=== PATIENT | female | born 1950 | race Caucasian/White ===

== ENCOUNTER 2023-01-03 19:54 | Inpatient (IN) | payer MEDICARE, OTHER ==
[~2023-01-03] VITALS: Ht 165.1 cm; Wt 75.7 kg
[2023-01-03 20:25] VITALS: BP 110/63; TEMP 98; O2SAT 96
[2023-01-03 20:30] VITALS: BP 110/63; TEMP 98; O2SAT 92
--- NOTE | 2023-01-03 20:30 | NUR ---
ADMITTED TO 5250 HOLD PER GD,DTO.*
--- NOTE | 2023-01-03 20:30 | NUR ---
RN NOTES :- ADMISSION NOTES: ADMITTED THIS 72Y/O FEMALE PATIENT ADMITTED FROM [facility]. ADMITTED TO 5150 HOLD PER HOLD GD ,DTO , DUE TO INCREASED AGITATION ,AND SUCIDAL BEHAVIOR . UPON FACE TO FACE ASSESSMENT PATIENT IS A&OX2 DEPRESSION,ANXIOUS ,CONFUSED ,COOPERTIVE/UNCOOPERTIVE AT THIS TIME ,POOR DECISION MAKING, NEEDS FREQUENTLY REDIRECTIONS,DENIES SI /HI AT THIS TIME, PT. IS POOR HISTORIAN, POOR INSIGHT ,POOR JUDGEMENT , BOTH MD AWARE AND NOTIFIED OF THE ADMISSION, NOTIFIED TO THE FAMILY. BELONGINGS CONTRABAND WERE DONE ,PT. REFUSED SIGNS ADMISSION CONSENT PAPER DUE TO CONFUSED , PT. RIGHTS DISCUSS BY NERVE SPECIALIST , PROVIDE THE PT. WITH HANDBOOK, AND MEDICATIONS GUIDE, ENVIRONMENTAL SAFETY CHECK DONE, ENCOURAGED PT. VERBALIZED ANY FEELING CONCERN TO STAFF, ORIENT TO UNIT POLICY, NO ACUTE DISTRESS NOTED,VITAL SIGNS WNL ,DENIES ANY PAIN AT THIS TIME,WILL CONTINUE TO MONITOR FOR Q15 SAFETY AND BEHAVIOR.
[2023-01-03] MEDS ORDERED: MAG HYDROX/AL HYDROX/SIMETH 30 ML UDC PO PRN (21:00)
[2023-01-03] MEDS ORDERED: MAGNESIUM HYDROXIDE 30 ML UDC PO PRN (21:00)
[2023-01-03] MEDS ORDERED: clonazePAM 0.5 MG TABLET PO PRN (21:00)
[2023-01-03] MEDS ORDERED: BLOOD SUGAR DIAGNOSTIC 1 EACH STRIP IN ONE (21:00)
[2023-01-03] MEDS ORDERED: TEMAZEPAM 7.5 MG CAPSULE PO PRN (21:00)
[2023-01-03] MEDS ORDERED: ESCI10TA PO (22:58)
[2023-01-03] MEDS ORDERED: LISINOPRIL (22:58)
[2023-01-03] MEDS ORDERED: ATOR20TA PO (22:58)
[2023-01-03] MEDS ORDERED: ALEN70TA80 PO (22:58)
[2023-01-03] MEDS ORDERED: OMEP20CA15 PO (22:58)
[2023-01-03] MEDS ORDERED: TRAZ-257 PO (22:58)
[2023-01-03] MEDS ORDERED: GABA-532 PO (22:58)
[2023-01-03] MEDS ORDERED: MIRABEGRON PO (22:58)
[2023-01-03] MEDS ORDERED: PIOG15TA8 PO (22:58)
[2023-01-03] MEDS ORDERED: GLIP5TAB13 PO (22:58)
[2023-01-03] MEDS ORDERED: ARIP2TAB3 PO (22:58)
[2023-01-04] MEDS ORDERED: DEXTROSE 50%-WATER 50 ML DISP.SYRIN IV PRN (00:30)
[2023-01-04] MEDS ORDERED: ALENDRONATE 70 MG TABLET PO SCH (06:00)
[2023-01-04 07:50] LABS: BASOPHILS # (AUTO) 0.1 K/uL (0.0-0.2); BASOPHILS % (AUTO) 0.7 % (0.0-2.0); EOSINOPHILS % (AUTO) 2.9 % (0.0-6.0); HEMATOCRIT 35 % (33-45); HEMOGLOBIN 11.4 g/dL (11.5-14.8); LYMPHOCYTES # (AUTO) 2.5 K/uL (0.8-4.8); MEAN CORPUSCULAR HGB CONC 33 g/dl (31.0-36.0); MEAN CORPUSCULAR VOLUME 94 fL (82-100); MONOCYTES # (AUTO) 0.4 K/uL (0.1-1.30); MONOCYTES % (AUTO) 5.6 % (2.0-12.0); NEUTROPHILS % (AUTO) 55.8 % (43.0-81.0); PLATELET COUNT (AUTO) 257 K/uL (150-450); RED BLOOD CELL COUNT(AUTO) 3.68 MIL/uL (4.0-5.2); WHITE BLOOD COUNT (AUTO) 7.2 K/uL (4.3-11.0)
[2023-01-04] MEDS: BLOOD SUGAR DIAGNOSTIC 1 EACH STRIP IN SCH ×4 (07:59→21:21)
[2023-01-04 08:00] VITALS: BP 112/74; TEMP 98.7; O2SAT 96
[2023-01-04] MEDS: INSULIN REGULAR, HUMAN 100 UNIT/ML 3 ML VIAL SQ PRN ×2 (08:03→21:28)
[2023-01-04 08:26] LABS: ALANINE AMINOTRANSFERASE 30 U/L (12-78); ALBUMIN 3.6 g/dL (3.4-5.0); ALKALINE PHOSPHATASE 94 U/L (46-116); ASPARTATE AMINOTRANSFERASE 34 U/L (15-37); BILIRUBIN,TOTAL 0.6 mg/dL (0.2-1.0); CALCIUM, SERUM 9.8 mg/dL (8.5-10.1); CARBON DIOXIDE 26 mmol/L (21-32); CHLORIDE 106 mmol/L (98-107); CREATININE 1.2 mg/dL (0.6-1.3); GLUCOSE 139 mg/dL (74-106); POTASSIUM 4.1 mmol/L (3.5-5.1); SODIUM SERUM 142 mmol/L (136-145); TOTAL PROTEIN, SERUM 7.8 g/dL (6.4-8.2); UREA NITROGEN, BLOOD 22 mg/dL (7-18)
[2023-01-04 08:31] LABS: CHOLESTEROL 146 mg/dL (<200); HDL CHOLESTEROL 47 mg/dL (40-60); LDL 53 mg/dL (0-99); THYROID STIMULATING HORMONE 0.839 uIU/mL (0.358-3.74); TRIGLYCERIDES 274 mg/dL (30-150)
[2023-01-04] MEDS ORDERED: ESCITALOPRAM OXALATE (10 MG) 10 MG TABLET PO SCH (09:00)
[2023-01-04] MEDS ORDERED: ARIPIPRAZOLE 2 MG TABLET PO SCH (09:00)
[2023-01-04] MEDS: PIOGLITAZONE HCL 15 MG TABLET PO SCH (09:37)
[2023-01-04] MEDS: ATORVASTATIN 10 MG TABLET PO SCH (09:37)
[2023-01-04] MEDS: PANTOPRAZOLE 40 MG TABLET.DR PO SCH (09:38)
[2023-01-04] MEDS: LISINOPRIL (5MG) 5 MG TABLET PO SCH (09:38)
[2023-01-04] MEDS: GABAPENTIN 300 MG CAPSULE PO SCH ×2 (09:41→17:13)
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
--- NOTE | 2023-01-04 10:00 | NUR ---
GM Initial Discharge Note: Patient currently resides at [address] [place] [address]; ([phone]). Patient lives with her partner Nathaniel ([phone]). GM attempted to contact pt's partner Nathaniel ([phone]) and discussed treatment/discharge he would want pt to return back home upon discharge. GM will work with the MD, family, and treatmen team to help coordinate appropriate discharge plan.
--- NOTE | 2023-01-04 10:02 | NUR ---
GM Family Contact: SW attempted to contact pt's partner Nathaniel ([phone]) and discussed treatment/discharge he would want pt to return back home upon discharge.
[2023-01-04] MEDS: OLANZAPINE 2.5 MG TABLET PO SCH ×2 (11:45→17:13)
[2023-01-04] MEDS: ESCITALOPRAM OXALATE (10 MG) 10 MG TABLET PO SCH (11:45)
--- NOTE | 2023-01-04 14:45 | NUR ---
pt. settling in seems depressed but comfortable.
[2023-01-04] MEDS ORDERED: OLAN10VI IM (15:23)
[2023-01-04] MEDS ORDERED: ACET-2605 PO (15:23)
[2023-01-04] MEDS ORDERED: GLIP2.5T16 PO (15:23)
[2023-01-04 20:00] VITALS: BP 95/62; TEMP 97.7; O2SAT 96
[2023-01-05] MEDS: PANTOPRAZOLE 40 MG TABLET.DR PO SCH (07:30)
[2023-01-05 08:00] VITALS: BP 105/62; TEMP 97.8; O2SAT 95
[2023-01-05] MEDS: BLOOD SUGAR DIAGNOSTIC 1 EACH STRIP IN SCH ×4 (08:03→21:33)
--- NOTE | 2023-01-05 08:06 | NUR ---
Discharge Note: Pt currently resides at [facility] located at [address] [place] [address]; ([phone]). Facility will pickler helper pt at 11AM. Lucy keller ([phone]) stated pt is welcomed back today. Pt is alert and oriented x3. Pt denies suicidal or homicidal ideation. Pt denies visual/auditory hallucinations. Primary doctor, Dr. Payne at the facility [address] [place] [address]; ([phone]) will monitor and provide pts antipsychotic medications. Pt presents with euthymic mood and congruent affect. Addendum: 01/05/23 at 0807 by GM DANG Wrong patient
[2023-01-05] MEDS: ESCITALOPRAM OXALATE (10 MG) 10 MG TABLET PO SCH (09:00)
[2023-01-05] MEDS: ATORVASTATIN 10 MG TABLET PO SCH (09:00)
[2023-01-05] MEDS: OLANZAPINE 5 MG TABLET PO SCH ×2 (09:00→17:00)
[2023-01-05] MEDS: GABAPENTIN 300 MG CAPSULE PO SCH ×2 (09:00→17:00)
[2023-01-05] MEDS: PIOGLITAZONE HCL 15 MG TABLET PO SCH (09:00)
[2023-01-05] MEDS: LISINOPRIL (5MG) 5 MG TABLET PO SCH (09:00)
--- NOTE | 2023-01-05 11:00 | NUR ---
RN Notes: Received pt. awake in the bed, quiet and non interactive to staffs. BS is 114 and refused to eat breakfast. Pt. non interactive to staffs and to the the nurse practitioner. Pt. refused to take po meds, explained on the importance and still refusing. Encouraged to verbalize feelings and motivated to attend group activities. Will continue to monitor for safety.
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
[2023-01-05] MEDS ORDERED: OLANZAPINE 10 MG VIAL IM ONE (14:00)
[2023-01-05] MEDS ORDERED: LORAZEPAM INJ 2 MG/ML VIAL IM ONE (14:00)
--- NOTE | 2023-01-05 14:02 | NUR ---
Zyprexa 5 mg IM and Ativan 1 mg IM given and RN unable to scan the med and dispose the remaining med in the disposable bin due to emergency situation. Pharmacist is made aware. Addendum: 01/05/23 at 1416 by GUIDO KUMAR RN Pt. is cooperative in the injection. Jose Valenzuela made aware of the incident
[2023-01-05 16:00] VITALS: BP 125/72; TEMP 97.8; O2SAT 98
[2023-01-05 20:00] VITALS: BP 110/70; TEMP 98; O2SAT 98
--- NOTE | 2023-01-05 21:34 | NUR ---
RN NOTES: REFUSED ACCU CHECK PT. REFUSED ACCU CHECK , ENCOURAGED X3 , RISKS AND BENEFITS EXPLINED, BUT PT. STRONGLY REFUSED , PT. BEHAVIOR UNCOOPERTIVE ,PARANOID, ANXIOUS.
--- NOTE | 2023-01-05 22:17 | NUR ---
RN NOTES: REFUSED URINE SPECIMEN PT. REFUSED URINE SEPICEMEN , ENCOURAGED X3 , RISKS AND BENEFITS EXPLINED, BUT PT. STRONGLY REFUSED , PT. BEHAVIOR UNCOOPERTIVE ,PARANOID, ANXIOUS.
[2023-01-06] MEDS: PANTOPRAZOLE 40 MG TABLET.DR PO SCH (07:30)
[2023-01-06] MEDS: BLOOD SUGAR DIAGNOSTIC 1 EACH STRIP IN SCH ×4 (07:30→22:00)
[2023-01-06 08:00] VITALS: BP 145/63; TEMP 97.9; O2SAT 96
[2023-01-06] MEDS: ESCITALOPRAM OXALATE (10 MG) 10 MG TABLET PO SCH (08:30)
[2023-01-06] MEDS: ATORVASTATIN 10 MG TABLET PO SCH (08:30)
[2023-01-06] MEDS: LISINOPRIL (5MG) 5 MG TABLET PO SCH ×2 (08:30→12:03)
[2023-01-06] MEDS: PIOGLITAZONE HCL 15 MG TABLET PO SCH ×2 (08:30→12:03)
[2023-01-06] MEDS: GABAPENTIN 300 MG CAPSULE PO SCH ×3 (08:30→18:01)
[2023-01-06] MEDS: OLANZAPINE 5 MG TABLET PO SCH ×3 (08:31→18:01)
--- NOTE | 2023-01-06 08:32 | NUR ---
GPS/RN PT REFUSED ACCUCHECK AND AM MEDS OFFERED X3. PT IS SELECTIVELY MUTE. USE THE HELP OF SANTIAGO/CHANTAL TO COMMUNICATE IN SERBIAN.
--- NOTE | 2023-01-06 12:04 | NUR ---
GPS/RN PT AGREED TO TAKE SOME AM MEDS AFTER DR WILSON HAD CONVERSATION WITH PATIENT. PT REFUSED ACCUCHECK FOR 1200
[2023-01-06 16:00] VITALS: BP_SYST 128; BP_SYST 137; BP_DIAS 66; BP_DIAS 78; TEMP 97.8; O2SAT 97; O2SAT 99
[2023-01-06] MEDS ORDERED: OLANZAPINE 5 MG TABLET PO SCH (17:00)
[2023-01-06 20:00] VITALS: BP 135/71; TEMP 97.6; O2SAT 95
--- NOTE | 2023-01-07 07:16 | NUR ---
RN NOTES: REFUSED URINE SPECIMEN PT. REFUSED URINE SEPICEMEN , ENCOURAGED X3 , RISKS AND BENEFITS EXPLINED, BUT PT. REFUSED , PT. BEHAVIOR UNCOOPERTIVE ,PARANOID, ANXIOUS.
[2023-01-07] MEDS: BLOOD SUGAR DIAGNOSTIC 1 EACH STRIP IN SCH ×4 (07:30→21:10)
[2023-01-07] MEDS: PANTOPRAZOLE 40 MG TABLET.DR PO SCH (07:30)
[2023-01-07 08:00] VITALS: BP 114/74; TEMP 97.6; O2SAT 94
--- NOTE | 2023-01-07 10:11 | NUR ---
GPS/RN PT IS STILL REFUSING TO TAKE MEDS. WILL TRY TO MEDICATE.
[2023-01-07] MEDS: GABAPENTIN 300 MG CAPSULE PO SCH ×2 (10:29→17:53)
[2023-01-07] MEDS: PIOGLITAZONE HCL 15 MG TABLET PO SCH (10:29)
[2023-01-07] MEDS: ATORVASTATIN 10 MG TABLET PO SCH (10:30)
[2023-01-07] MEDS: OLANZAPINE 5 MG TABLET PO SCH ×2 (10:30→17:53)
[2023-01-07] MEDS: LISINOPRIL (5MG) 5 MG TABLET PO SCH (10:30)
[2023-01-07 16:00] VITALS: BP 115/74; TEMP 97.6; O2SAT 96
[2023-01-07 20:00] VITALS: BP 119/70; TEMP 98; O2SAT 98
[2023-01-08] MEDS: BLOOD SUGAR DIAGNOSTIC 1 EACH STRIP IN SCH ×4 (07:30→21:25)
[2023-01-08 08:00] VITALS: BP 133/84; TEMP 97.6; O2SAT 98
[2023-01-08] MEDS: PANTOPRAZOLE 40 MG TABLET.DR PO SCH (08:08)
[2023-01-08] MEDS: GABAPENTIN 300 MG CAPSULE PO SCH ×2 (08:38→17:20)
[2023-01-08] MEDS: ATORVASTATIN 10 MG TABLET PO SCH (08:38)
[2023-01-08] MEDS: OLANZAPINE 5 MG TABLET PO SCH ×2 (08:38→17:20)
[2023-01-08] MEDS: PIOGLITAZONE HCL 15 MG TABLET PO SCH ×2 (08:38→08:48)
[2023-01-08] MEDS: LISINOPRIL (5MG) 5 MG TABLET PO SCH (08:39)
[2023-01-08 16:00] VITALS: BP 130/51; TEMP 97.8; O2SAT 94
--- NOTE | 2023-01-08 18:55 | NUR ---
RN- CLOSING NOTES PATIENT AWAKE, RESTING IN BED, BREATHING EVEN AND NON LABORED WITH NO S/S OF DISTRESS. PATIENT IS COOPERATIVE, DISORIENTED, DEPRESSED, ANXIOUS, LABILE, SUSPICIOUS, AND ISOLATIVE. PATIENT IS MEDICATION COMPLIANT. ENCOURAGED PATIENT TO LEAVE ROOM AND SOCIALIZE WITH STAFF, PATIENT REFUSED. DENIES SI/HI AT THIS TIME. WILL CONTINUE TO MONITOR Q 15 MINUTES FOR SAFETY AND BEHAVIOR.
[2023-01-08 20:00] VITALS: BP 94/43; TEMP 98; O2SAT 97
[2023-01-08] MEDS: INSULIN REGULAR, HUMAN 100 UNIT/ML 3 ML VIAL SQ PRN (22:01)
[2023-01-09] MEDS: BLOOD SUGAR DIAGNOSTIC 1 EACH STRIP IN SCH ×4 (07:36→22:12)
[2023-01-09] MEDS: PANTOPRAZOLE 40 MG TABLET.DR PO SCH (07:37)
[2023-01-09] MEDS: INSULIN REGULAR, HUMAN 100 UNIT/ML 3 ML VIAL SQ PRN ×3 (07:39→22:01)
[2023-01-09 08:00] VITALS: BP 120/68; TEMP 98.1; O2SAT 97
[2023-01-09] MEDS: GABAPENTIN 300 MG CAPSULE PO SCH ×2 (08:31→17:30)
[2023-01-09] MEDS: ATORVASTATIN 10 MG TABLET PO SCH (08:31)
[2023-01-09] MEDS: PIOGLITAZONE HCL 15 MG TABLET PO SCH (08:31)
[2023-01-09] MEDS: OLANZAPINE 5 MG TABLET PO SCH ×2 (08:31→17:30)
[2023-01-09] MEDS: LISINOPRIL (5MG) 5 MG TABLET PO SCH (08:32)
[2023-01-09 16:00] VITALS: BP 95/55; TEMP 98.1; O2SAT 100
--- NOTE | 2023-01-09 18:45 | NUR ---
GPS RN CLOSING NOTES: PATIENT IN HER BED AWAKE,ALERT AND ORIENTED X 1-2 ITALIAN SPEAKER. ABLE TO VERBALIZE NEEDS. NO SOB OR CARDIAC DISTRESS NOTED.PT IS COMPLIANT IN TAKING HER MEDICATIONS,PT ON BLOOD SUGAR MONITORING AND ADMINISTRATION OF INSULIN PER SLIDING SCALE ORDERED. NO S/SX OF HYPER/HYPOGLYCEMIA NOTED.NEEDS ATTENDED. WILL MONITOR ACCORDINGLY. WILL ENDORSE TO STABILIZER OPERATOR NURSE FOR CONTINUITY OF CARE.
[2023-01-09 20:20] VITALS: BP 101/68; TEMP 98.3; O2SAT 100
[2023-01-10] MEDS: ACETAMINOPHEN 325 MG TABLET PO PRN (00:58)
[2023-01-10 08:00] VITALS: BP_SYST 100; BP_SYST 96; BP_DIAS 58; BP_DIAS 87; TEMP 97.9; TEMP 98.7; O2SAT 97; O2SAT 98
[2023-01-10] MEDS: BLOOD SUGAR DIAGNOSTIC 1 EACH STRIP IN SCH ×4 (08:40→21:49)
[2023-01-10] MEDS: PANTOPRAZOLE 40 MG TABLET.DR PO SCH (08:51)
[2023-01-10] MEDS: GABAPENTIN 300 MG CAPSULE PO SCH ×2 (08:51→16:46)
[2023-01-10] MEDS: OLANZAPINE 5 MG TABLET PO SCH ×2 (08:52→16:46)
[2023-01-10] MEDS: ATORVASTATIN 10 MG TABLET PO SCH (08:53)
[2023-01-10] MEDS: PIOGLITAZONE HCL 15 MG TABLET PO SCH (08:53)
[2023-01-10] MEDS: LISINOPRIL (5MG) 5 MG TABLET PO SCH (08:55)
[2023-01-10 21:48] VITALS: BP 104/63; TEMP 97.2; O2SAT 96
[2023-01-11 08:00] VITALS: BP 115/62; TEMP 98.6; O2SAT 96
[2023-01-11] MEDS: BLOOD SUGAR DIAGNOSTIC 1 EACH STRIP IN SCH ×4 (08:12→21:11)
[2023-01-11] MEDS: LISINOPRIL (5MG) 5 MG TABLET PO SCH (10:35)
[2023-01-11] MEDS: PIOGLITAZONE HCL 15 MG TABLET PO SCH (10:35)
[2023-01-11] MEDS: OLANZAPINE 5 MG TABLET PO SCH ×2 (10:36→17:37)
[2023-01-11] MEDS: GABAPENTIN 300 MG CAPSULE PO SCH ×2 (10:36→17:38)
[2023-01-11] MEDS: ATORVASTATIN 10 MG TABLET PO SCH (10:36)
[2023-01-11] MEDS: PANTOPRAZOLE 40 MG TABLET.DR PO SCH (10:36)
[2023-01-11 16:00] VITALS: BP 111/76; TEMP 98.7; O2SAT 96
--- NOTE | 2023-01-11 18:49 | NUR ---
cooperative,compliant,no behavior issues.
[2023-01-11 20:00] VITALS: BP 118/62; TEMP 98.5; O2SAT 97
[2023-01-11] MEDS: INSULIN REGULAR, HUMAN 100 UNIT/ML 3 ML VIAL SQ PRN (21:12)
[2023-01-11] MEDS: ACETAMINOPHEN 325 MG TABLET PO PRN (21:55)
--- NOTE | 2023-01-11 22:00 | NUR ---
GPS RN NOTE PATIENT BLOOD SUGAR 143MG/DL, REFUSED INSULIN REINFORCED HEALTH TEACHING ON IMPORTANCE BUT PATIENT STILL REFUSED. WILL CONTINUE TO MONITOR.
--- NOTE | 2023-01-11 22:05 | NUR ---
RN NOTE:- PT REQUESTED FOR PAIN PILL, TYLENOL PO ADMINISTERED ORDERED. WILL CONT TO MONITOR.
--- NOTE | 2023-01-12 07:00 | NUR ---
SENIOR MOBILE DEVELOPER OPENING NOTE PATIENT AWAKE, ALERT AND ORIENTED X3. PATIENT DENIES PAIN OR DISCOMFORT AT PRESENT. PATIENT C/O THAT SHE DOES NOT WANT TO HAVE GLUCOSE CHECK THIS MORNING. SAFETY MEASURES IN PLACE: BED LOCKED TO THE LOWEST POSITION, TABLE WITHIN REACH. CONT. TO MONITOR.
[2023-01-12] MEDS: BLOOD SUGAR DIAGNOSTIC 1 EACH STRIP IN SCH ×4 (07:30→22:00)
[2023-01-12 08:00] VITALS: BP 118/75; TEMP 97.9; O2SAT 97
[2023-01-12] MEDS ORDERED: IBUPROFEN 600 MG TABLET PO PRN (08:30)
[2023-01-12] MEDS: GABAPENTIN 300 MG CAPSULE PO SCH ×2 (09:23→17:00)
[2023-01-12] MEDS: PANTOPRAZOLE 40 MG TABLET.DR PO SCH (09:23)
[2023-01-12] MEDS: PIOGLITAZONE HCL 15 MG TABLET PO SCH (09:23)
[2023-01-12] MEDS: LISINOPRIL (5MG) 5 MG TABLET PO SCH (09:24)
[2023-01-12] MEDS: ATORVASTATIN 10 MG TABLET PO SCH (09:24)
[2023-01-12] MEDS: OLANZAPINE 5 MG TABLET PO SCH ×2 (09:24→17:00)
[2023-01-12 16:00] VITALS: BP 98/58; TEMP 98; O2SAT 96
--- NOTE | 2023-01-12 18:50 | NUR ---
FACILITIES MAINTENANCE ASSISTANT CLOSING NOTE PATIENT AWAKE, ALERT AND ORIENTED X3. CALM, TALKING WITH HER FAMILY AT PRESENT. PATIENT DENIES PAIN. NO S/S OF DISCOMFORT NOTED. SAFETY MEASURES IN PLACE: BED LOCKED TO THE LOWEST POSITION. TABLE WITHIN REACH. I WILL ENDORSE TO THE FOLLOWING NURSE FOR SIRI.
[2023-01-12 20:00] VITALS: BP 110/60; TEMP 97.5; O2SAT 98
--- NOTE | 2023-01-12 22:10 | NUR ---
RN NOTES: REFUSED ACCU CHECK PT. REFUSED ACCU CHECK , ENCOURAGED X3 , RISKS AND BENEFITS EXPLINED, BUT PT. STRONGLY REFUSED .
--- NOTE | 2023-01-13 07:00 | NUR ---
BLOOD AND PLASMA LABORATORY ASSISTANT OPENING NOTE PATIENT AWAKE, ALERT AND ORIENTED. PATIENT DENIES PAIN AT PRESENT. NO S/S OF DISCOMFORT NOTED. SAFETY MEASURES IN PLACE: BED LOCKED TO THE LOWEST POSITION, TABLE WITHIN REACH. CONT. TO MONITOR.
[2023-01-13] MEDS: BLOOD SUGAR DIAGNOSTIC 1 EACH STRIP IN SCH ×4 (07:46→21:33)
[2023-01-13 08:00] VITALS: BP 94/60; TEMP 97.8; O2SAT 95
[2023-01-13] MEDS: PANTOPRAZOLE 40 MG TABLET.DR PO SCH (08:10)
[2023-01-13] MEDS: PIOGLITAZONE HCL 15 MG TABLET PO SCH (08:11)
[2023-01-13] MEDS: GABAPENTIN 300 MG CAPSULE PO SCH ×2 (08:11→17:03)
[2023-01-13] MEDS: ATORVASTATIN 10 MG TABLET PO SCH (08:11)
[2023-01-13] MEDS: LISINOPRIL (5MG) 5 MG TABLET PO SCH (08:12)
[2023-01-13] MEDS: OLANZAPINE 5 MG TABLET PO SCH ×2 (08:12→17:02)
[2023-01-13 16:00] VITALS: BP 111/67; TEMP 97.6; O2SAT 97
--- NOTE | 2023-01-13 18:50 | NUR ---
MOTOR SETTER CLOSING NOTE PATIENT AWAKE, ALERT AND ORIENTED X3. CALM AND COOPERATIVE. PATIENT DENIES PAIN, DENIES DISCOMFORT. NO S/S OF DISTRESS NOTED. SAFETY MEASURES IN PLACE: BED LOCKED TO THE LOWEST POSITION. TABLE AND WALKER WITHIN REACH. I WILL ENDORSE TO THE FOLLOWING NURSE FOR SIRI.
--- NOTE | 2023-01-13 20:34 | NUR ---
BUSINESS ANALYSIS SPECIALIST NOTE: RECEIVED PATIENT AWAKE, RESTING IN BED, BREATHING EVEN AND NON LABORED WITH NO S/S OF DISTRESS. PATIENT IS COOPERATIVE, DISORIENTED, DEPRESSED, ANXIOUS, LABILE, SUSPICIOUS, AND ISOLATIVE. PATIENT IS MEDICATION COMPLIANT.NO C/O PAIN AT THIS TIME. DENIES SI/HI AT THIS TIME. PATIENT ASSITED ON TURNING AND REPOSITIONING Q2H OR PRN FOR CIRCULATION AND COMFORT.WILL CONTINUE TO MONITOR Q 15 MINUTES FOR SAFETY AND BEHAVIOR WITH THE HELP OF STAFF.
[2023-01-13] MEDS: INSULIN REGULAR, HUMAN 100 UNIT/ML 3 ML VIAL SQ PRN (21:34)
--- NOTE | 2023-01-13 21:35 | NUR ---
HAND LEATHER TRIMMER NOTE: PATIENT BS 132 MG.PATIENT REFUSED INSULIN .EDUCATE PATIENT FOR THE RISK AND BENEFIT.WILL CONTINUE TO MONITOR
[2023-01-14] MEDS: BLOOD SUGAR DIAGNOSTIC 1 EACH STRIP IN SCH ×4 (07:57→21:37)
--- NOTE | 2023-01-14 07:58 | NUR ---
refused insulin coverage.
[2023-01-14 08:00] VITALS: BP 142/77; TEMP 97.8; O2SAT 95
[2023-01-14] MEDS: LISINOPRIL (5MG) 5 MG TABLET PO SCH (08:51)
[2023-01-14] MEDS: OLANZAPINE 5 MG TABLET PO SCH (08:51)
[2023-01-14] MEDS: PIOGLITAZONE HCL 15 MG TABLET PO SCH (08:51)
[2023-01-14] MEDS: ATORVASTATIN 10 MG TABLET PO SCH (08:52)
[2023-01-14] MEDS: GABAPENTIN 300 MG CAPSULE PO SCH ×2 (08:53→17:53)
[2023-01-14] MEDS: PANTOPRAZOLE 40 MG TABLET.DR PO SCH (08:53)
[2023-01-14 16:00] VITALS: BP 94/63; TEMP 97.9; O2SAT 97
[2023-01-14] MEDS ORDERED: OLANZAPINE 5 MG TABLET PO SCH (17:00)
[2023-01-14 20:00] VITALS: BP 108/75; TEMP 97.6; O2SAT 97
--- NOTE | 2023-01-14 20:31 | NUR ---
PUMP HOUSE OPERATOR NOTE: RECEIVED PATIENT AWAKE, RESTING IN BED, BREATHING EVEN AND NON LABORED WITH NO S/S OF DISTRESS. PATIENT IS COOPERATIVE, DISORIENTED, DEPRESSED, ANXIOUS, LABILE, SUSPICIOUS, AND ISOLATIVE. PATIENT IS MEDICATION COMPLIANT.NO C/O PAIN AT THIS TIME. DENIES SI/HI AT THIS TIME. PATIENT ASSITED ON TURNING AND REPOSITIONING Q2H OR PRN FOR CIRCULATION AND COMFORT.WILL CONTINUE TO MONITOR Q 15 MINUTES FOR SAFETY AND BEHAVIOR WITH THE HELP OF STAFF
[2023-01-15] MEDS: PANTOPRAZOLE 40 MG TABLET.DR PO SCH (07:49)
[2023-01-15] MEDS: BLOOD SUGAR DIAGNOSTIC 1 EACH STRIP IN SCH ×4 (07:56→21:54)
[2023-01-15] MEDS: INSULIN REGULAR, HUMAN 100 UNIT/ML 3 ML VIAL SQ PRN ×3 (07:59→18:28)
[2023-01-15 08:00] VITALS: BP 108/51; TEMP 97.8; O2SAT 96
[2023-01-15] MEDS: PIOGLITAZONE HCL 15 MG TABLET PO SCH (08:32)
[2023-01-15] MEDS: GABAPENTIN 300 MG CAPSULE PO SCH ×2 (08:32→16:44)
[2023-01-15] MEDS: LISINOPRIL (5MG) 5 MG TABLET PO SCH ×2 (08:33→08:34)
[2023-01-15] MEDS: ATORVASTATIN 10 MG TABLET PO SCH (08:35)
[2023-01-15 16:00] VITALS: BP 129/52; TEMP 98; O2SAT 98
[2023-01-15] MEDS: OLANZAPINE 2.5 MG TABLET PO SCH (16:44)
[2023-01-15 21:10] VITALS: BP 102/80; TEMP 97.9; O2SAT 98
[2023-01-15] MEDS: OLANZAPINE 5 MG TABLET PO SCH (21:23)
[2023-01-16 08:00] VITALS: BP 112/72; TEMP 97.9; O2SAT 99
[2023-01-16] MEDS: BLOOD SUGAR DIAGNOSTIC 1 EACH STRIP IN SCH ×4 (08:21→21:03)
[2023-01-16] MEDS: PANTOPRAZOLE 40 MG TABLET.DR PO SCH (08:21)
[2023-01-16] MEDS: PIOGLITAZONE HCL 15 MG TABLET PO SCH (08:21)
[2023-01-16] MEDS: GABAPENTIN 300 MG CAPSULE PO SCH ×2 (08:22→17:46)
[2023-01-16] MEDS: OLANZAPINE 2.5 MG TABLET PO SCH ×2 (08:22→17:46)
[2023-01-16] MEDS: ATORVASTATIN 10 MG TABLET PO SCH (08:22)
[2023-01-16] MEDS: LISINOPRIL (5MG) 5 MG TABLET PO SCH (08:22)
--- NOTE | 2023-01-16 15:53 | NUR ---
Court Notification: Attempted to contact pt's Nathaniel ([phone]) notify of 30 day.
--- NOTE | 2023-01-16 15:54 | NUR ---
Court Hearing: Patient's court hearing for 30 day was today and it was upheld for GD.
[2023-01-16 16:00] VITALS: BP 100/52; TEMP 98.7; O2SAT 98
[2023-01-16 20:00] VITALS: BP 111/72; TEMP 97.6; O2SAT 96
[2023-01-16] MEDS: OLANZAPINE 5 MG TABLET PO SCH (20:59)
[2023-01-16] MEDS: INSULIN REGULAR, HUMAN 100 UNIT/ML 3 ML VIAL SQ PRN (21:33)
[2023-01-17 08:00] VITALS: BP 100/58; TEMP 97.8; O2SAT 97
--- NOTE | 2023-01-17 08:05 | NUR ---
SW Discharge Note: Patient will be discharged back home located at [address] [place] [id number]; ([phone]). Patients Nathaniel ([phone]) will pickler helper pt at 12PM. Pt is alert and oriented x2. Patient is happy to be going back home. Patient denies suicidal or homicidal ideation. Patient denies visual/auditory hallucinations. Patient will follow up with Technical Support Agent, Dr. Lenz located at [facility] located at [address] [place] [address]; on January 18 at 9AM who will monitor and provide patients antipsychotic medications.
[2023-01-17 09:00] VITALS: BP 100/85
[2023-01-17] MEDS: LISINOPRIL (5MG) 5 MG TABLET PO SCH (09:00)
[2023-01-17] MEDS: BLOOD SUGAR DIAGNOSTIC 1 EACH STRIP IN SCH ×2 (09:17→11:38)
[2023-01-17] MEDS: GABAPENTIN 300 MG CAPSULE PO SCH (09:33)
[2023-01-17] MEDS: PANTOPRAZOLE 40 MG TABLET.DR PO SCH (09:33)
[2023-01-17] MEDS: ATORVASTATIN 10 MG TABLET PO SCH (09:33)
[2023-01-17] MEDS: PIOGLITAZONE HCL 15 MG TABLET PO SCH (09:33)
[2023-01-17] MEDS: OLANZAPINE 2.5 MG TABLET PO SCH (09:34)
--- NOTE | 2023-01-17 10:54 | NUR ---
pt.refused dc photos.denies s/i and h/i.anxious to go home.preparing for dc.
--- NOTE | 2023-01-17 12:15 | NUR ---
spouse here and reviewed all instructions along with md appt.went over rxs and routine meds.had 3d designer.taken to spouse's car via w/c.
== END 2023-01-17 12:15 | disposition home or self-care (01) | DRG 885 ==
LOC: GPS 20:07
PROVIDERS: ADMIT Nurse Practitioner Psychiatric/Mental Health; ATTEND Internal Medicine
DX: F25.1 Schizoaffective disorder, depressive type (principal); E66.9 Obesity, unspecified; Z68.27 Body mass index [BMI] 27.0-27.9, adult; E78.5 Hyperlipidemia, unspecified; G47.00 Insomnia, unspecified; M81.0 Age-related osteoporosis without current pathological fracture; M54.50 Low back pain, unspecified; R41.9 Unspecified symptoms and signs involving cognitive functions and awareness; Z79.899 Other long term (current) drug therapy; Z87.891 Personal history of nicotine dependence; E11.9 Type 2 diabetes mellitus without complications; I10 Essential (primary) hypertension
CPT/HCPCS: 36415; 80053-TC; 80061-TC; 82962-TC; 84443-TC; 85025-TC; 87081-TC; 97112-TC; 97116-TC; 97530-TC; J1815; J2060; J3490